=== PATIENT | female | born 1965 | race African-American/Black ===

== ENCOUNTER 2021-05-03 20:47 | Inpatient (IN) | payer OTHER, MEDICAID ==
[~2021-05-03] VITALS: Ht 162.6 cm; Wt 65.8 kg
[2021-05-03 21:43] LABS: BASOPHILS % 0.3 % (0.0-2.0); EOSINOPHILS % 2.6 % (0.0-5.0); HEMATOCRIT. 36.7 % (36.0-48.0); HEMOGLOBIN. 11.9 g/dL (12.0-16.0); LYMPHOCYTES % 13.8 % (20.0-50.0); MEAN CORPUSCULAR HEMOGLOBIN 28.1 pg (28.0-32.0); MEAN CORPUSCULAR VOLUME 86.4 fL (81.0-99.0); MEAN PLATELET VOLUME 7.5 fl (7.4-10.4); MONOCYTES % 7.1 % (2.0-8.0); NEUTROPHILS % 76.2 % (40.0-76.0); PLATELET 361 x1000/uL (130-400); RED BLOOD CELL COUNT 4.25 mill/uL (4.2-5.4); RED CELL DISTRIBUTION WIDTH 13.6 % (11.6-14.6)
[2021-05-03 21:45] LABS: CHLORIDE 111 mEq/L (98-107)
[2021-05-03] MEDS ORDERED: LACTATED RINGERS 1,000 ML IV SCH (22:30)
[2021-05-03] MEDS ORDERED: SODIUM CHLORIDE 0.9% 1,000 ML IV ONE (22:45)
[2021-05-04] VITALS (8 sets, daily range): BP systolic 78–121; BP diastolic 54–77
[2021-05-04 05:57] LABS: CLARITY URINE CLEAR (CLEAR); COLOR URINE YELLOW (YELLOW); KETONES URINE NEGATIVE (NEGATIVE); LEUKOCYTE ESTERASE URINE NEGATIVE (NEGATIVE); NITRITE URINE NEGATIVE (NEGATIVE); OCCULT BLOOD URINE NEGATIVE (NEGATIVE); PROTEIN URINE 1+ (NEGATIVE); SPECIFIC GRAVITY URINE 1.027 (1.005-1.030); UROBILINOGEN URINE 0.2 E.U./dL (0.2-1.0)
[2021-05-04] MEDS ORDERED: ACETAMINOPHEN 325MG TABLET PO PRN (08:15)
[2021-05-04] MEDS ORDERED: ONDANSETRON HCL 4MG/2ML INJ IV PRN (08:15)
[2021-05-04] MEDS ORDERED: DEXTROSE 50% WATER 50ML SYRINGE IV PRN (08:15)
[2021-05-04] MEDS: ASPIRIN 81MG TABLET PO SCH (09:44)
[2021-05-04] MEDS: BLOOD SUGAR DIAGNOSTIC STRIP TEST SCH ×3 (12:13→21:00)
[2021-05-04] MEDS: INSULIN LISPRO 100 UNITS/ML SUBCUT SCH ×3 (13:28→21:00)
[2021-05-04] MEDS ORDERED: BISO5TAB13 PO (13:35)
[2021-05-04] MEDS ORDERED: ATOR-2 PO (13:35)
[2021-05-04] MEDS ORDERED: ASPI-1497 PO (13:35)
[2021-05-04] MEDS ORDERED: CLOP75TA33 PO (13:36)
[2021-05-04] MEDS ORDERED: LISI2.5T47 PO (13:38)
[2021-05-04] MEDS ORDERED: METF-414 PO (13:38)
[2021-05-05] VITALS: BP 99/57
[2021-05-05 04:00] VITALS: BP 90/63
[2021-05-05] MEDS: INSULIN LISPRO 100 UNITS/ML SUBCUT SCH (07:50)
[2021-05-05 08:00] VITALS: BP_SYST 101; BP_SYST 99; BP_DIAS 57; BP_DIAS 67
[2021-05-05] MEDS: BLOOD SUGAR DIAGNOSTIC STRIP TEST SCH (08:01)
[2021-05-05 08:33] LABS: CHLORIDE 111 mEq/L (98-107)
[2021-05-05 08:39] LABS: BASOPHILS % 0.7 % (0.0-2.0); EOSINOPHILS % 3.9 % (0.0-5.0); HEMATOCRIT. 36.1 % (36.0-48.0); HEMOGLOBIN. 11.9 g/dL (12.0-16.0); LYMPHOCYTES % 25.5 % (20.0-50.0); MEAN CORPUSCULAR VOLUME 85.4 fL (81.0-99.0); MEAN PLATELET VOLUME 7.8 fl (7.4-10.4); MONOCYTES % 7.8 % (2.0-8.0); NEUTROPHILS % 62.1 % (40.0-76.0); PLATELET 326 x1000/uL (130-400); RED BLOOD CELL COUNT 4.23 mill/uL (4.2-5.4); RED CELL DISTRIBUTION WIDTH 13.4 % (11.6-14.6)
[2021-05-05] MEDS: ASPIRIN 81MG TABLET PO SCH (09:14)
[2021-05-05] MEDS ORDERED: CLOPIDOGREL 75MG TABLET PO SCH (10:35)
[2021-05-05 11:52] VITALS: BP 101/67
[2021-05-05] MEDS ORDERED: ATORVASTATIN CALCIUM 40MG TABLET PO SCH (21:00)
== END 2021-05-05 12:14 | disposition home or self-care (01) | DRG 871 ==
LOC: ER 20:47 → EDBEDREQ 23:20 → EDBEDREQTM 23:20 → MICUSO 05-04 00:35 → 6WST 05-04 09:28
PROVIDERS: ADMIT Internal Medicine; ATTEND Internal Medicine
DX: A41.9 Sepsis, unspecified organism (principal); R65.21 Severe sepsis with septic shock; I10 Essential (primary) hypertension; E11.9 Type 2 diabetes mellitus without complications; E87.8 Other disorders of electrolyte and fluid balance, not elsewhere classified; K52.9 Noninfective gastroenteritis and colitis, unspecified; G90.8 Other disorders of autonomic nervous system; I25.10 Atherosclerotic heart disease of native coronary artery without angina pectoris; T46.5X5A Adverse effect of other antihypertensive drugs, initial encounter; Y92.89 Other specified places as the place of occurrence of the external cause; I25.2 Old myocardial infarction; Z87.891 Personal history of nicotine dependence; Z95.5 Presence of coronary angioplasty implant and graft
CPT/HCPCS: 36415; 71045; 80048; 80053; 81003; 82962; 83036; 83880; 84145; 84443; 84484; 85025; 93005; 93306; 99285; J1815; J7030; J7120